=== PATIENT | female | born 1995 | race African-American/Black ===

== ENCOUNTER 2017-06-27 20:04 | Inpatient (IN) | payer MEDICAID, OTHER ==
[2017-06-27] VITALS (40 sets, daily range): BP systolic 108; BP diastolic 58; PULSE 87–131; RESP 18; TEMP 98.5
[~2017-06-27] VITALS: Ht 160 cm; Wt 74.0 kg
[~2017-06-27 20:04] MED LIST: Docusate Sod/Senna PO; IBUP600 PO; PRENCAP6 PO
[2017-06-27] MEDS: LACTATED RINGER'S 1000 ML INJ 1,000 ML IV SCH (20:53)
[2017-06-27] MEDS ORDERED: LACTATED RINGER'S 1000 ML INJ 1,000 ML IV ONE (21:00)
[2017-06-27] MEDS ORDERED: ONDANSETRON HCL 4 MG/2 ML VIAL IV PUSH ONE (21:00)
[2017-06-27] MEDS ORDERED: ACETAMINOPHEN 325 MG TAB PO ONE (21:00)
[2017-06-27 21:59] LABS: HEMATOCRIT 30.3 % (35.0-46.0); MEAN CELL VOLUME 72.7 FL (80.0-100.0); MEAN CORPUSCULAR HEMOGLOBIN 24.1 PG (27.0-34.0); MEAN CORPUSCULAR HGB CONC 33.2 % (32.0-36.0); PLATELET COUNT 260 TH/MM3 (150-450); RED BLOOD COUNT 4.17 MIL/MM3 (4.00-5.30); RED CELL DISTRIBUTION WIDTH 17.1 % (11.6-17.2); REVIEW FLAG FINAL; WHITE BLOOD COUNT 11.2 TH/MM3 (4.0-11.0)
[2017-06-27 22:04] LABS: BACTERIA, URINE RARE /hpf; BLOOD, URINE NEG (NEG); COMMENT (UR) CULT NOT INDICATED; CULTURE IF INDICATED CULT NOT INDICATED; GLUCOSE,URINE NEG (NEG); KETONE, URINE 10 mg/dL (NEG); MUCUS URINE FEW /lpf (OCC); NITRITE,URINE NEG (NEG); PH, URINE 6.5 (5.0-8.5); SQUAMOUS EPITHELIAL CELL URINE 3 /hpf (0-5); URINE COLOR YELLOW (YELLW/STRAW)
[2017-06-27 22:16] LABS: ANION GAP 9 MEQ/L (5-15); AST (GOT) 18 U/L (15-37); BICARBONATE 22.7 MEQ/L (21.0-32.0); BLOOD UREA NITROGEN 2 MG/DL (7-18); CHLORIDE 103 MEQ/L (98-107); GLOMERULAR FILTRATION RATE 128 ML/MIN (>89); POTASSIUM 4.2 MEQ/L (3.5-5.1); SODIUM (NA) 135 MEQ/L (136-145)
[2017-06-27 22:17] LABS: ALT (GPT) 16 U/L (10-53)
[2017-06-27 22:20] LABS: ALKALINE PHOSPHATASE 199 U/L (45-117); TOTAL BILIRUBIN ADULT 0.6 MG/DL (0.2-1.0)
[2017-06-27] MEDS ORDERED: TERBUTALINE INJ 1 MG/ML AMP ONE (22:41)
[2017-06-28] VITALS (51 sets, daily range): BP systolic 68–122; BP diastolic 43–74; PULSE 80–135; RESP 16–18; TEMP 98.1–99.1
--- NOTE | 2017-06-28 02:17 | PD ---
HPI Chief Complaint Not feeling well, contractions Date Seen: Jun 27, 2017 Time Seen: 22:00 Travel History International Travel<30 Days: No Contact w/Intl Traveler<30Days: No Known Affected Area: No History of Present Illness HPI 21-year-old 2 para 1001 with IUP at 32 weeks and 4 days. care complicated by anemia. The patient presents complaining of sore throat and runny nose with clear rhinorrhea for 3 days. She reports 2-2 days ago her temperature was 101 but today prior to presentation was 100.1 she reports that she has a headache which has not been relieved with Tylenol. She reports she has not ill contacts. There have been no aggravating or alleviating factors to her sore throat or runny nose. There are no attempted treatments except Tylenol. She she also reports that she's been feeling contractions. She reports that she is just generally not feeling well she also reports some nausea but has been able to tolerate by mouth intake. She had to take the bus to get here tonight. Weeks Gestation: 32 Para: 1 : 2 History Past Medical History Narrative Medical Anemia Obstetric History Obstetric History 001, full-term 1 Past Surgical History Surgical History: No Previous Surgery Family History Family History: Negative Social History Alcohol Use: No Tobacco Use: No Substance Abuse: No Allergies-Medications (Allergen,Severity, Reaction): Coded Allergies: Sulfa (Sulfonamide Antibiotics) (Unverified Allergy, Unknown, 03/26/17) Home Meds Active Scripts Ibuprofen (Motrin 600 Mg Tab) 600 Mg Tab, 600 MG PO Q6H for CRAMPS, #30 TAB NO REFILLS Refills Prov:GEOVANY TORRES CMaryN.M. 07/19/14 [Docusate Sod/Senna] 1 TAB TAB No Conflict Check, 2 TAB PO Q12H Y for CONSTIPATION, #30 TAB NO REFILLS Refills Prov:GEOVANY TORRES CMaryN.M. 07/19/14 Reported Medications Mv & Min W/Fe Fumarat ( 1) Cap, 1 CAP PO, CAP 07/17/14 Review of Systems Except as stated in HPI: all other systems reviewed are Neg General / Constitutional: Fever HENT: Headaches, Other (rhinorrhea) Respiratory: Cough Gastrointestinal: Nausea Physical Exam Vital Signs Date Time Temp Pulse Resp B/P (MAP) Pulse Ox O2 Delivery O2 Flow Rate FiO2 06/28/17 02:07 123 103/61 (75) 06/28/17 01:25 110 06/28/17 01:20 106 06/28/17 01:15 106 06/28/17 01:10 107 06/28/17 01:05 114 06/28/17 01:00 101 06/28/17 01:00 18 06/28/17 00:55 106 06/28/17 00:50 104 06/28/17 00:45 107 06/28/17 00:40 104 06/28/17 00:35 108 06/28/17 00:30 18 06/28/17 00:30 114 06/28/17 00:25 109 06/28/17 00:20 110 06/28/17 00:15 112 06/28/17 00:10 103 06/28/17 00:05 110 06/28/17 00:00 114 18 06/27/17 23:55 110 06/27/17 23:50 117 06/27/17 23:45 109 06/27/17 23:40 121 06/27/17 23:35 107 06/27/17 23:30 18 06/27/17 23:30 102 06/27/17 23:25 116 06/27/17 23:20 113 06/27/17 23:15 114 06/27/17 23:10 122 06/27/17 23:05 122 06/27/17 23:00 18 06/27/17 23:00 115 06/27/17 22:55 113 06/27/17 22:50 96 06/27/17 22:45 131 06/27/17 22:40 101 06/27/17 22:35 93 06/27/17 22:30 18 06/27/17 22:30 97 06/27/17 22:25 131 06/27/17 22:20 87 06/27/17 22:15 94 06/27/17 22:10 89 06/27/17 22:05 92 06/27/17 22:00 18 06/27/17 22:00 89 06/27/17 21:55 92 06/27/17 21:50 87 06/27/17 21:45 88 06/27/17 21:40 93 06/27/17 21:35 88 06/27/17 21:30 92 06/27/17 21:30 18 06/27/17 21:25 90 06/27/17 21:20 95 06/27/17 21:15 95 06/27/17 21:10 97 06/27/17 21:05 94 06/27/17 21:00 93 06/27/17 21:00 18 06/27/17 20:50 105 06/27/17 20:45 105 06/27/17 20:30 98.5 06/27/17 20:24 121 108/58 (75) Narrative GENERAL: Well-nourished, well-developed patient. SKIN: Warm and dry. HEAD: Normocephalic and atraumatic. EYES: No scleral icterus. No injection or drainage. ENT: No nasal drainage noted. Mucous membranes pink. Airway patent. NECK: Supple, trachea midline. No JVD. CARDIOVASCULAR: Regular rate and rhythm without murmurs, gallops, or rubs. RESPIRATORY: Breath sounds equal bilaterally. No accessory muscle use. BREASTS: Deferred ABDOMEN/GI: Abdomen soft, non-tender, bowel sounds present, no rebound, no guarding GENITOURINARY: External Genitalia: intact and normal in appearance. Normal BUS. Physiologic discharge. No cervical or vaginal masses. Normal rugae. The fibronectin was obtained. SVE closed/50/-3, posterior. The patient was having frequent contractions upon arrival which have decreased in intensity and frequency with IV fluids and terbutaline FHT's: heart tones in the 130s with moderate long-term variability, good accelerations, no decelerations noted. Overall reassuring testing EXTREMITIES: No cyanosis or edema. BACK: Nontender without obvious deformity. No CVA tenderness. NEUROLOGICAL: Awake and alert. Motor and sensory grossly within normal limits. Five out of 5 muscle strength in all muscle groups. Normal speech. Psychiatric: Grossly normal memory and affect Musculoskeletal: Grossly normal range of motion, gait, muscle strength Data Data Orders Orders Vital Signs (Adult) .ON ADMISSION (06/27/17 20:53) ^ Labor Status (06/27/17 20:53) Urinalysis - C+S If Indicated (06/27/17 20:53) ^ Non Stress Test (06/27/17 20:53) ^ Hydration (06/27/17 20:53) Cbc No Diff, Includes Plts (06/27/17 20:53) Comprehensive Metabolic Panel (06/27/17 20:53) Fibronectin (06/27/17 20:53) Lactated Ringer's 1000 Ml Inj (Lr 1000 M (06/27/17 20:53) Acetaminophen (Tylenol) (06/27/17 21:00) Ondansetron Inj (Zofran Inj) (06/27/17 21:00) Lactated Ringer's 1000 Ml Inj (Lr 1000 M (06/27/17 21:00) Influenzae A/B Antigen (06/27/17 20:55) Terbutaline Inj (Brethine Inj) (06/27/17 22:41) Ob (2e) Additional Admit Info (06/28/17 01:11) Labs Laboratory Tests Test 06/27/17 21:00 White Blood Count 11.2 Red Blood Count 4.17 Hemoglobin 10.1 Hematocrit 30.3 Mean Corpuscular Volume 72.7 Mean Corpuscular Hemoglobin 24.1 Mean Corpuscular Hemoglobin Concent 33.2 Red Cell Distribution Width 17.1 Platelet Count 260 Mean Platelet Volume 10.0 Urine Color YELLOW Urine Turbidity CLEAR Urine pH 6.5 Urine Specific [place] 1.010 Urine Protein TRACE Urine Glucose (UA) NEG Urine Ketones 10 Urine Occult Blood NEG Urine Nitrite NEG Urine Bilirubin NEG Urine Urobilinogen LESS THAN 2.0 Urine Leukocyte Esterase MOD Urine RBC 1 Urine WBC 1 Urine Squamous Epithelial Cells 3 Urine Bacteria RARE Urine Mucus FEW Microscopic Urinalysis Comment CULT NOT INDICATED Fibronectin NEGATIVE Blood Urea Nitrogen 2 Creatinine 0.69 Random Glucose 70 Total Protein 8.1 Albumin 2.7 Calcium Level 9.0 Alkaline Phosphatase 199 Aspartate Amino Transf (AST/SGOT) 18 Alanine Aminotransferase (ALT/SGPT) 16 Total Bilirubin 0.6 Sodium Level 135 Potassium Level 4.2 Chloride Level 103 Carbon Dioxide Level 22.7 Anion Gap 9 Estimat Glomerular Filtration Rate 128 Date/Time Source Procedure Growth Status 06/27/17 21:00 Nasal Washing Influenza Types A,B Antigen (ZACH) - Final NEGATIVE FOR FLU A AND B ANTIGEN.... Complete MDM Plan Assessment/plan: 1. IUP at 32.4 2. contractions: No evidence of labor with negative fibronectin and closed cervical exam. Contractions improved with terbutaline 1 and IV fluids; however patient is still kendra so will admit overnight to observe for labor. Strict labor precautions. 3. Probable upper respiratory infection: Patient with rhinorrhea with clear discharge, headache, mild sore throat. No evidence of influenza. We'll monitor 4. Febrile morbidity: Patient reports fever 1011 day ago, and 100.1 just prior to admission. Will observe overnight 5. well-being: Overall reassuring testing will continue monitoring. 6. UA negative Sonia Escalona MD Jun 28, 2017 02:17
[2017-06-28] MEDS ORDERED: SODIUM CHLORIDE 0.9% FLUSH 10 ML FLUSH IV FLUSH PRN (02:30)
[2017-06-28] MEDS ORDERED: ACETAMINOPHEN 325 MG TAB PO PRN (02:30)
[2017-06-28] MEDS ORDERED: ONDANSETRON ODT 4 MG TAB PO PRN (02:30)
[2017-06-28] MEDS ORDERED: ZOLPIDEM TARTRATE 5 MG TAB PO PRN (02:30)
[2017-06-28] MEDS: LACTATED RINGER'S 1000 ML INJ 1,000 ML IV SCH ×2 (06:00→12:53)
[2017-06-28] MEDS: SODIUM CHLORIDE 0.9% FLUSH 10 ML FLUSH IV FLUSH SCH ×2 (09:00→21:00)
[2017-06-28 13:37] LABS: AUTOMATED NEUTROPHIL # 3.6 TH/MM3 (1.8-7.7); BASOPHIL % 0.6 % (0.0-2.0); EOSINOPHIL # 0.2 TH/MM3 (0-0.4); EOSINOPHIL % 2.9 % (0.0-4.0); LYMPH % 25.4 % (9.0-44.0); LYMPHOCYTE # 1.6 TH/MM3 (1.0-4.8); MEAN CELL VOLUME 72.4 FL (80.0-100.0); MEAN CORPUSCULAR HEMOGLOBIN 23.4 PG (27.0-34.0); MEAN CORPUSCULAR HGB CONC 32.3 % (32.0-36.0); MONO % 12.4 % (0.0-8.0); NEUT % 58.7 % (16.0-70.0); PLATELET COUNT 208 TH/MM3 (150-450); RED BLOOD COUNT 2.92 MIL/MM3 (4.00-5.30); RED CELL DISTRIBUTION WIDTH 17.2 % (11.6-17.2); WHITE BLOOD COUNT 6.1 TH/MM3 (4.0-11.0)
[2017-06-28 13:43] LABS: HEMO FLAGS AUTO DIFF
[2017-06-28 13:50] LABS: HEMATOCRIT 21.1 % (35.0-46.0)
--- NOTE | 2017-06-28 14:11 | HHI.PR ---
Addendum to Inpatient Note Addendum Reason: Additional Documentation Additional Information As patient was preparing for discharge, she slipped and fell on her abdomen. Since then, she has been complaining of increased abdominal pain, approximately as bad as when she initially came in. She says that before she came in she was noticing some blood when she was wiping, but she otherwise denied any vaginal bleeding, and still denies any increase in vaginal bleeding. Bedside ultrasound did not show any obvious placental abruption. -Ordered BPP -Ordered coag profile, KB, type and screen because of decrease in hemoglobin from 10.1-6.8 and concern for placental abruption s/d/w Dr. Stapleton. Obed Wallace MD R2 Jun 28, 2017 14:11
[2017-06-28] MEDS ORDERED: LACTATED RINGER'S 1000 ML INJ 1,000 ML IV ONE (14:30)
[2017-06-28 14:44] LABS: SCAN/DIFF AUTO DIFF CONFIRMED
[2017-06-28 15:09] LABS: INTERNATIONAL NORMALIZED RATIO 0.9 RATIO; PROTHROMBIN TIME - PATIENT 9.8 SEC (9.8-11.6)
[2017-06-28] MEDS ORDERED: BETAMETHASONE SOD PHOS/ACETATE SUSP 30 MG/5 ML VIAL IM ONE (15:45)
[2017-06-29] VITALS (28 sets, daily range): BP systolic 86–118; BP diastolic 42–66; PULSE 97–127; RESP 18; TEMP 97.9–98
[2017-06-29] MEDS: LACTATED RINGER'S 1000 ML INJ 1,000 ML IV SCH ×2 (00:02→04:53)
[2017-06-29 05:57] LABS: AUTOMATED NEUTROPHIL # 6.3 TH/MM3 (1.8-7.7); BASOPHIL % 0.2 % (0.0-2.0); HEMATOCRIT 24.4 % (35.0-46.0); HEMO FLAGS DIFF FINAL; LYMPH % 15.5 % (9.0-44.0); LYMPHOCYTE # 1.2 TH/MM3 (1.0-4.8); MEAN CORPUSCULAR HGB CONC 33.4 % (32.0-36.0); MONO % 3.8 % (0.0-8.0); NEUT % 80.5 % (16.0-70.0); PLATELET COUNT 236 TH/MM3 (150-450); RED BLOOD COUNT 3.39 MIL/MM3 (4.00-5.30); RED CELL DISTRIBUTION WIDTH 16.9 % (11.6-17.2); WHITE BLOOD COUNT 7.8 TH/MM3 (4.0-11.0)
[2017-06-29] MEDS ORDERED: ONDANSETRON HCL 4 MG/2 ML VIAL ONE (07:53)
[2017-06-29] MEDS ORDERED: TERBUTALINE INJ 1 MG/ML AMP SQ ONE (08:00)
[2017-06-29] MEDS ORDERED: ONDANSETRON HCL 4 MG/2 ML VIAL IV PUSH PRN (08:00)
--- NOTE | 2017-06-29 08:52 | PD.OB.ANTE ---
Subjective Diagnosis: (1) contractions Diagnosis: Principal Interval History After she fell on her abdomen, she had a drop in her hemoglobin: 10.1, 6.8, now 8.1 this morning. Seemed to do well overnight with only a few decel's and sparce contractions, but she woke up with painful contractions, intense abdominal pain, and nausea and vomiting. Antepartum ROS: Reports: New complaints (as above), movement normal, Contractions, Denies: Loss of fluid, Vaginal bleeding Objective Vital Signs Vital Signs Date Time Temp Pulse Resp B/P (MAP) Pulse Ox O2 Delivery O2 Flow Rate FiO2 06/29/17 08:00 18 06/29/17 07:45 97 118/53 (74) 06/28/17 22:54 98.2 16 06/28/17 22:47 101 96/43 (60) 06/28/17 19:37 16 06/28/17 19:37 99.1 108 110/52 (71) 06/28/17 18:30 108 95/51 (66) 06/28/17 18:15 118 107/58 (74) 06/28/17 18:00 108 98/53 (68) 06/28/17 17:45 99 107/52 (70) 06/28/17 17:30 110 116/60 (78) 06/28/17 17:15 108 104/54 (71) 06/28/17 17:00 96 115/57 (76) 06/28/17 16:46 108 121/65 (83) 06/28/17 16:30 94 115/66 (82) 06/28/17 16:02 100 103/63 (76) 06/28/17 15:45 98 111/74 (86) 06/28/17 15:30 87 113/44 (67) 06/28/17 15:15 84 106/67 (80) 06/28/17 15:08 80 103/65 (78) 06/28/17 11:05 127 93/51 (65) 06/28/17 11:00 122 100/46 (64) 06/28/17 10:55 131 109/48 (68) 06/28/17 10:50 118 98/56 (70) 06/28/17 10:45 119 105/46 (65) 06/28/17 10:40 116 95/54 (68) 11/17/17 10:35 122 68/54 (59) 06/28/17 10:31 18 06/28/17 10:30 123 91/59 (70) 06/28/17 10:26 135 99/50 (66) 06/28/17 10:21 116 89/59 (69) 06/28/17 10:15 130 103/58 (73) 06/28/17 10:14 129 91/57 (68) Lab & Micro Results Test 06/28/17 12:30 06/28/17 14:29 06/29/17 05:40 White Blood Count 6.1 TH/MM3 7.8 TH/MM3 Red Blood Count 2.92 MIL/MM3 3.39 MIL/MM3 Hemoglobin 6.8 GM/DL 8.1 GM/DL Hematocrit 21.1 % 24.4 % Mean Corpuscular Volume 72.4 FL 72.0 FL Mean Corpuscular Hemoglobin 23.4 PG 24.0 PG Mean Corpuscular Hemoglobin Concent 32.3 % 33.4 % Red Cell Distribution Width 17.2 % 16.9 % Platelet Count 208 TH/MM3 236 TH/MM3 Mean Platelet Volume 9.4 FL 9.6 FL Neutrophils (%) (Auto) 58.7 % 80.5 % Lymphocytes (%) (Auto) 25.4 % 15.5 % Monocytes (%) (Auto) 12.4 % 3.8 % Eosinophils (%) (Auto) 2.9 % 0.0 % Basophils (%) (Auto) 0.6 % 0.2 % Neutrophils # (Auto) 3.6 TH/MM3 6.3 TH/MM3 Lymphocytes # (Auto) 1.6 TH/MM3 1.2 TH/MM3 Monocytes # (Auto) 0.8 TH/MM3 0.3 TH/MM3 Eosinophils # (Auto) 0.2 TH/MM3 0.0 TH/MM3 Basophils # (Auto) 0.0 TH/MM3 0.0 TH/MM3 CBC Comment AUTO DIFF DIFF FINAL Differential Comment AUTO DIFF CONFIRMED Hemoglobin F () 0.0 % Prothrombin Time 9.8 SEC Prothromb Time International Ratio 0.9 RATIO Activated Partial Thromboplast Time 25.0 SEC Date/Time Source Procedure Growth Status 06/27/17 21:00 Nasal Washing Influenza Types A,B Antigen (ZACH) - Final NEGATIVE FOR FLU A AND B ANTIGEN.... Complete Physical Exam GENERAL: Well-nourished, well-developed patient appears uncomfortable with contractions. CARDIOVASCULAR: Regular rate and rhythm without murmurs, gallops, or rubs. RESPIRATORY: Breath sounds equal bilaterally. No accessory muscle use. ABDOMEN/GI: Abdomen soft, non-tender. Fundus: c/w 30-33 week gestation GENITOURINARY: exam performed by Dr. Stapleton External Genitalia: intact and normal in appearance Cervix: posterior Dilatation: closed Uterine Contractions: q4-7m FHT's: Category: Cat I Baseline: 150 Reactive: reactive w/ accels Variability: moderate Decels: none EXTREMITIES: No cyanosis or edema, non-tender, without signs of DVT. Assessment and Plan Problem List: (1) contractions ICD Codes: O47.9 - False labor, unspecified Assessment and Plan Patient is a 21-year-old at 32 weeks and 6 days who presented with contractions, subsequently fell on her abdomen and had a drop in her hemoglobin, which seems to have resolved. However, now her contractions are worse this morning and she has nausea and vomiting. 1. contractions -Fentanyl 50 g IV -Terbutaline SQ -IV magnesium -Patient received one betamethasone shot yesterday (06/28). We plan to give another today (06/29) -Ampicillin 2g q6h -continue to monitor vitals and FHT and toco 2. nausea and vomiting -Zofran IV PRN d/w Dr. Pieter Wallace,Obed Liang MD R2 Jun 29, 2017 08:52
[2017-06-29] MEDS: SODIUM CHLORIDE 0.9% FLUSH 10 ML FLUSH IV FLUSH SCH ×2 (09:00→21:00)
[2017-06-29] MEDS ORDERED: MAGNESIUM SULFATE 4 GM PREMIX 100 ML IV ONE (09:15)
[2017-06-29] MEDS: BETAMETHASONE SOD PHOS/ACETATE SUSP 30 MG/5 ML VIAL IM SCH (09:15)
[2017-06-29] MEDS: MAGNESIUM SULFATE 40 GM PREMIX 1,000 ML IV SCH (09:57)
[2017-06-29] MEDS ORDERED: CITRIC ACID-SODIUM CITRATE LIQ 30 ML UDC ONE (10:25)
[2017-06-29] MEDS ORDERED: PSEUDOEPHEDRINE HCL 30 MG TAB PO PRN (10:45)
[2017-06-29] MEDS ORDERED: FAMOTIDINE 20 MG TAB PO ONE (11:00)
[2017-06-29] MEDS: AMPICILLIN INJ 2,000 MG in SODIUM CHLORIDE 0.9% INJ 100 ML IV SCH ×2 (12:00→17:01)
[2017-06-29] MEDS ORDERED: BETAMETHASONE SOD PHOS/ACETATE SUSP 30 MG/5 ML VIAL IM ONE (16:55)
[2017-06-29 17:42] LABS: HEMATOCRIT 23.1 % (35.0-46.0); MEAN CELL VOLUME 72.5 FL (80.0-100.0); MEAN CORPUSCULAR HEMOGLOBIN 23.2 PG (27.0-34.0); PLATELET COUNT 259 TH/MM3 (150-450); RED BLOOD COUNT 3.18 MIL/MM3 (4.00-5.30); RED CELL DISTRIBUTION WIDTH 16.7 % (11.6-17.2); REVIEW FLAG FINAL; WHITE BLOOD COUNT 11.3 TH/MM3 (4.0-11.0)
--- NOTE | 2017-06-29 19:04 | HHI.PR ---
Addendum to Inpatient Note Addendum Reason: Additional Documentation Additional Information Consult Mary Riley MR# [id number] Maternal Hx: 21 y/o, at 32.5 weeks gestation with diagnosis of Labor, Febrile URI Mother admitted to [facility] on 06/28/17, secondary to uterine contractions and viral illness. Maternal Labs: Have been sent and are pending Maternal Medications: PNV, Antibiotics, Magnesium Sulfate Betamethasone 06/28/17 and 06/29/17 Social: Resides locally Family Hx: Mother reports no genetic or inherited conditions. Reports other child is well, breast fed x 2.5 years Substance Abuse: Denies Discussion: Nurse Practitioner met with mother regarding threatened delivery at 32.5 weeks gestation secondary to Labor. This consultation included generalized care of the baby in the NICU, common problems, complications and survival and/or disability potential if delivered at this time. Mother was provided with informational sheets from [facility] regarding the development of the baby currently, an introduction to the NICU, and what to expect at the delivery. Mother agreed that she would review the information as soon as possible. We reviewed the expectations with delivery of an infant under these circumstances including delivery room atmosphere, resuscitation and stabilization. Also included in this review is the admission process to the NICU, including possible procedures such as intubation and placement of umbilical catheter(s). Additionally, there was a discussion of the disease processes that may affect an infant of this gestation, including but not limited to respiratory distress, infection and nutritional concerns. Discussion detailed various forms of respiratory support for immature lungs including use of surfactant and placement of umbilical catheters and/or PICC lines. Discussion focused on CPAP and/or ventilator support as needed for an of this gestation. There was a review of nutritional support challenges including IV and gavage feeding. There was discussion regarding of possible feeding intolerances. Breast feeding and early breast milk pumping was strongly encouraged, and mother plans to do so. Explained that is at risk for hyperbilirubinemia and may require treatment with phototherapy. Explained possibility of apnea/ bradycardia. Support systems in [facility] at [facility] were reviewed and included , Case Management and Ministry which the family may utilize. Expected discharge would likely occur closer to the due date if the infant has an uncomplicated hospitalization. Greater than 50% of the consultation time was spent with the patient. Consult time was 50 minutes. Danitza EDWARDSP Date 06/29/2017 DANITZA GARRISON Jun 29, 2017 19:04
--- NOTE | 2017-06-29 19:31 | PD.OB.ANTE ---
Subjective Diagnosis: (1) contractions Interval History Patient reports diminished abdominal pain. No bleeding. Decreased contractions. Antepartum ROS: Reports: movement normal, Denies: Loss of fluid, Vaginal bleeding Objective Vital Signs Vital Signs Date Time Temp Pulse Resp B/P (MAP) Pulse Ox O2 Delivery O2 Flow Rate FiO2 06/29/17 18:00 105 86/42 (57) 06/29/17 17:16 18 06/29/17 17:15 98.0 06/29/17 17:00 18 06/29/17 17:00 120 107/57 (74) 06/29/17 16:06 108 100/46 (64) 06/29/17 16:00 124 18 87/52 (64) 06/29/17 15:00 119 18 105/54 (71) 06/29/17 14:00 119 107/52 (70) 06/29/17 13:57 18 06/29/17 13:00 18 06/29/17 13:00 118 116/56 (76) 06/29/17 12:00 120 100/44 (62) 06/29/17 11:50 18 06/29/17 11:00 125 101/63 (76) 06/29/17 10:30 121 06/29/17 10:15 123 06/29/17 10:10 122 96/45 (62) 06/29/17 10:10 127 06/29/17 10:05 122 110/48 (68) 06/29/17 10:05 118 06/29/17 10:04 18 06/29/17 10:00 123 110/54 (72) 06/29/17 10:00 18 06/29/17 09:55 117 113/64 (80) 06/29/17 09:52 118 110/66 (81) 06/29/17 08:00 18 06/29/17 08:00 98.0 06/29/17 07:45 97 118/53 (74) 06/28/17 22:54 98.2 16 06/28/17 22:47 101 96/43 (60) 06/28/17 19:37 16 06/28/17 19:37 99.1 108 110/52 (71) Lab & Micro Results Test 06/29/17 05:40 06/29/17 16:05 White Blood Count 7.8 TH/MM3 11.3 TH/MM3 Red Blood Count 3.39 MIL/MM3 3.18 MIL/MM3 Hemoglobin 8.1 GM/DL 7.4 GM/DL Hematocrit 24.4 % 23.1 % Mean Corpuscular Volume 72.0 FL 72.5 FL Mean Corpuscular Hemoglobin 24.0 PG 23.2 PG Mean Corpuscular Hemoglobin Concent 33.4 % 32.0 % Red Cell Distribution Width 16.9 % 16.7 % Platelet Count 236 TH/MM3 259 TH/MM3 Mean Platelet Volume 9.6 FL 9.6 FL Neutrophils (%) (Auto) 80.5 % Lymphocytes (%) (Auto) 15.5 % Monocytes (%) (Auto) 3.8 % Eosinophils (%) (Auto) 0.0 % Basophils (%) (Auto) 0.2 % Neutrophils # (Auto) 6.3 TH/MM3 Lymphocytes # (Auto) 1.2 TH/MM3 Monocytes # (Auto) 0.3 TH/MM3 Eosinophils # (Auto) 0.0 TH/MM3 Basophils # (Auto) 0.0 TH/MM3 CBC Comment DIFF FINAL Differential Comment Date/Time Source Procedure Growth Status 06/27/17 21:00 Nasal Washing Influenza Types A,B Antigen (ZACH) - Final NEGATIVE FOR FLU A AND B ANTIGEN.... Complete Physical Exam GENERAL: Well-nourished, well-developed patient. ABDOMEN/GI: Abdomen soft, non-tender. Fundus: [-] GENITOURINARY: External Genitalia: intact and normal in appearance Cervix: [-] Dilatation: [-] Effacement: [-] Station: [-] Presentation: [-] Membranes: [-] Uterine Contractions: [Irregular-] FHT's: Category: [1-] Baseline: [-] Reactive: [-] Variability: [-] Decels: [-] EXTREMITIES: No cyanosis or edema, non-tender, without signs of DVT. Assessment and Plan Problem List: (1) contractions ICD Codes: O47.9 - False labor, unspecified Assessment and Plan Patient is a 21-year-old at 32 weeks and 6 days who presented with contractions, subsequently fell on her abdomen and had a drop in her hemoglobin, which is stable. However, her contractions were worse this morning and she has nausea and vomiting. 1. contractions -IV magnesium -Patient received one betamethasone shot yesterday (06/28). We plan to give another today (06/29) -Ampicillin 2g q6h -continue to monitor vitals and FHT and toco 2. nausea and vomiting -Zofran IV PRN 3. Serial hemoglobin Gregorio Barnett MD Jun 29, 2017 19:31
[2017-06-29] MEDS: DOCUSATE SODIUM 100 MG CAP PO SCH (21:00)
[2017-06-30] VITALS (62 sets, daily range): BP systolic 94–118; BP diastolic 28–65; PULSE 78–116; RESP 18–20; TEMP 97.7–98.9; O2SAT 99–100
[2017-06-30] MEDS: LACTATED RINGER'S 1000 ML INJ 1,000 ML IV SCH ×2 (04:53→12:53)
[2017-06-30] MEDS: MAGNESIUM SULFATE 40 GM PREMIX 1,000 ML IV SCH (05:07)
[2017-06-30] MEDS: AMPICILLIN INJ 2,000 MG in SODIUM CHLORIDE 0.9% INJ 100 ML IV SCH ×4 (06:00→12:00)
[2017-06-30 07:00] LABS: MEAN CELL VOLUME 72.5 FL (80.0-100.0); MEAN CORPUSCULAR HGB CONC 33.2 % (32.0-36.0); PLATELET COUNT 227 TH/MM3 (150-450); RED BLOOD COUNT 2.88 MIL/MM3 (4.00-5.30); RED CELL DISTRIBUTION WIDTH 17.3 % (11.6-17.2); WHITE BLOOD COUNT 9.2 TH/MM3 (4.0-11.0)
[2017-06-30 07:04] LABS: REVIEW FLAG FINAL
[2017-06-30 07:07] LABS: HEMATOCRIT 20.9 % (35.0-46.0)
[2017-06-30] MEDS: SODIUM CHLORIDE 0.9% FLUSH 10 ML FLUSH IV FLUSH SCH (09:00)
[2017-06-30] MEDS: DOCUSATE SODIUM 100 MG CAP PO SCH (09:00)
[2017-06-30] MEDS: BETAMETHASONE SOD PHOS/ACETATE SUSP 30 MG/5 ML VIAL IM SCH (09:15)
--- NOTE | 2017-06-30 10:07 | PD.OB.ANTE ---
Subjective Diagnosis: (1) contractions Interval History The patient reports continued low-grade abdominal pain that she describes as being in the area above her umbilicus. She states it feels like a crampy tenderness. No bleeding, leakage of fluid or increasing contraction. Her upper respiratory symptoms are improving. Antepartum ROS: Reports: movement normal, Contractions, Denies: New complaints, Loss of fluid, Vaginal bleeding Objective Vital Signs Vital Signs Date Time Temp Pulse Resp B/P (MAP) Pulse Ox O2 Delivery O2 Flow Rate FiO2 06/30/17 09:00 18 06/30/17 08:20 90 06/30/17 08:15 86 06/30/17 08:10 86 06/30/17 08:05 84 06/30/17 08:00 101/58 (72) 06/30/17 08:00 86 06/30/17 08:00 100 06/30/17 07:55 84 100 06/30/17 07:50 92 100 06/30/17 07:45 88 100 06/30/17 07:40 101 100 06/30/17 07:39 18 06/30/17 07:38 98.2 06/30/17 07:35 100 06/30/17 07:32 93 113/55 (74) 06/30/17 05:58 97.7 18 06/30/17 05:55 91 94/43 (60) 06/30/17 02:46 90 103/55 (71) 06/29/17 23:00 99 101/47 (65) 06/29/17 22:00 101 109/62 (78) 06/29/17 21:00 97.9 121 18 99/55 (70) 06/29/17 20:41 116 102/55 (71) 06/29/17 19:02 98 112/57 (75) 06/29/17 18:00 105 86/42 (57) 06/29/17 17:16 18 06/29/17 17:15 98.0 06/29/17 17:00 18 06/29/17 17:00 120 107/57 (74) 06/29/17 16:06 108 100/46 (64) 06/29/17 16:00 124 18 87/52 (64) 06/29/17 15:00 119 18 105/54 (71) 06/29/17 14:00 119 107/52 (70) 06/29/17 13:57 18 06/29/17 13:00 18 06/29/17 13:00 118 116/56 (76) 06/29/17 12:00 120 100/44 (62) 06/29/17 11:50 18 06/29/17 11:00 125 101/63 (76) 06/29/17 10:30 121 06/29/17 10:15 123 06/29/17 10:10 122 96/45 (62) 06/29/17 10:10 127 06/29/17 10:05 122 110/48 (68) 06/29/17 10:05 118 06/29/17 10:04 18 06/29/17 10:00 123 110/54 (72) 06/29/17 10:00 18 06/29/17 09:55 117 113/64 (80) 06/29/17 09:52 118 110/66 (81) Lab & Micro Results Test 06/29/17 16:05 06/30/17 05:42 White Blood Count 11.3 TH/MM3 9.2 TH/MM3 Red Blood Count 3.18 MIL/MM3 2.88 MIL/MM3 Hemoglobin 7.4 GM/DL 6.9 GM/DL Hematocrit 23.1 % 20.9 % Mean Corpuscular Volume 72.5 FL 72.5 FL Mean Corpuscular Hemoglobin 23.2 PG 24.0 PG Mean Corpuscular Hemoglobin Concent 32.0 % 33.2 % Red Cell Distribution Width 16.7 % 17.3 % Platelet Count 259 TH/MM3 227 TH/MM3 Mean Platelet Volume 9.6 FL 9.8 FL HIV (1&2) Antibody NEGATIVE Date/Time Source Procedure Growth Status 06/27/17 21:00 Nasal Washing Influenza Types A,B Antigen (ZACH) - Final NEGATIVE FOR FLU A AND B ANTIGEN.... Complete Physical Exam GENERAL: Well-nourished, well-developed patient. CARDIOVASCULAR: Regular rate and rhythm without murmurs, gallops, or rubs. RESPIRATORY: Breath sounds equal bilaterally. No accessory muscle use. ABDOMEN/GI: Abdomen soft, non-tender. Fundus: [Nontender, soft-] GENITOURINARY: External Genitalia: intact and normal in appearance Cervix: [-] Dilatation: [-Closed] Effacement: [-25%] Station: [--2] Presentation: [-Vertex] Membranes: [-] Uterine Contractions: [Irregular mild-] FHT's: Category: [2-] Baseline: [-] Reactive: [-] Variability: [Moderate-] Decels: [Intermittent late-] EXTREMITIES: No cyanosis or edema, non-tender, without signs of DVT. Assessment and Plan Problem List: (1) contractions ICD Codes: O47.9 - False labor, unspecified Assessment and Plan Patient is a 21-year-old at 32 weeks and 6 days who presented with contractions, subsequently fell on her abdomen and had a drop in her hemoglobin, which is stable. However, her contractions were worse this morning and she has nausea and vomiting. 1. contractions -Patient received betamethasone -Ampicillin 2g q6h -continue to monitor vitals and FHT and toco 2. nausea and vomiting -Zofran IV PRN 3. Serial hemoglobin Gregorio Barnett MD Jun 30, 2017 10:07
[2017-06-30 17:17] LABS: REVIEW FLAG FINAL
[2017-06-30 17:18] LABS: HEMATOCRIT 20.3 % (35.0-46.0)
--- NOTE | 2017-06-30 17:31 | HHI.PR ---
ELECTRON MICROSCOPIST Note Note Laboratory Tests Test 06/29/17 05:40 06/29/17 16:05 06/30/17 05:42 06/30/17 16:35 White Blood Count 7.8 TH/MM3 11.3 TH/MM3 9.2 TH/MM3 Red Blood Count 3.39 MIL/MM3 3.18 MIL/MM3 2.88 MIL/MM3 Hemoglobin 8.1 GM/DL 7.4 GM/DL 6.9 GM/DL 6.6 GM/DL Hematocrit 24.4 % 23.1 % 20.9 % 20.3 % Mean Corpuscular Volume 72.0 FL 72.5 FL 72.5 FL Mean Corpuscular Hemoglobin 24.0 PG 23.2 PG 24.0 PG Mean Corpuscular Hemoglobin Concent 33.4 % 32.0 % 33.2 % Red Cell Distribution Width 16.9 % 16.7 % 17.3 % Platelet Count 236 TH/MM3 259 TH/MM3 227 TH/MM3 Mean Platelet Volume 9.6 FL 9.6 FL 9.8 FL Neutrophils (%) (Auto) 80.5 % Lymphocytes (%) (Auto) 15.5 % Monocytes (%) (Auto) 3.8 % Eosinophils (%) (Auto) 0.0 % Basophils (%) (Auto) 0.2 % Neutrophils # (Auto) 6.3 TH/MM3 Lymphocytes # (Auto) 1.2 TH/MM3 Monocytes # (Auto) 0.3 TH/MM3 Eosinophils # (Auto) 0.0 TH/MM3 Basophils # (Auto) 0.0 TH/MM3 CBC Comment DIFF FINAL Differential Comment HIV (1&2) Antibody NEGATIVE Patient seen and examined. No signs of bleeding and patient states that she has been severely anemic this . No labs are available at this time. She continues to complain of weakness, fatigue, and occasional dizziness. We discussed the need for blood transfusion. IV iron is an alternative but would not be feasible quickly. Margaret Grimes MD Jun 30, 2017 17:31
[2017-06-30] MEDS ORDERED: SODIUM CHLOR 0.9% 250 ML INJ 250 ML IV ONE (17:45)
[2017-06-30] MEDS ORDERED: diphenhydrAMINE HCL 25 MG CAP PO PRN (17:45)
[2017-06-30] MEDS ORDERED: ACETAMINOPHEN 325 MG TAB PO PRN (17:45)
[2017-06-30] MEDS ORDERED: diphenhydrAMINE HCL 50 MG CAP PO PRN (22:45)
[2017-06-30] MEDS ORDERED: PSEUDOEPHEDRINE HCL 30 MG TAB PO PRN (23:15)
[2017-06-30] MEDS ORDERED: PANTOPRAZOLE SOD 40 MG DELAYED RELEASE TAB PO SCH (23:15)
--- NOTE | 2017-06-30 23:15 | HHI.PR ---
PHARMACY TECH CUSTOMER SERVICE Note Note Called to see patient due to heartburn. Patient states that she's having an almost obstructive feeling in her lower esophagus that is consistent with her typical heartburn pattern. Although she continues to be congested lung sounds are normal and there clear bilaterally with no wheezes no round rales. Patient' s pulses 100 and she is presently on her second unit of packed red blood cells due to symptomatically anemia. She is moving air well with an oxygen saturation of 100% and a normal blood pressure I will go ahead and order Protonix to be given now and then daily for her continued heartburn. I've ordered Benadryl for tonight for her congestion and Sudafed for tomorrow during the day. Margaret Grimes MD Jun 30, 2017 23:15
[2017-07-01 00:25] VITALS: BP 100/59; PULSE 88
[2017-07-01 00:30] VITALS: BP 100/59; PULSE 88; RESP 18; TEMP 98.7
[2017-07-01 00:34] VITALS: RESP 18; TEMP 98.7
[2017-07-01 06:00] LABS: HEMATOCRIT 25.4 % (35.0-46.0); REVIEW FLAG FINAL
[2017-07-01 07:19] VITALS: RESP 16; TEMP 98.2
[2017-07-01 07:31] VITALS: RESP 16
[2017-07-01] MEDS: LACTATED RINGER'S 1000 ML INJ 1,000 ML IV SCH ×2 (07:32→07:33)
[2017-07-01] MEDS: SODIUM CHLORIDE 0.9% FLUSH 10 ML FLUSH IV FLUSH SCH ×2 (07:33→09:03)
--- NOTE | 2017-07-01 08:41 | PD.OB.ANTE ---
Subjective Diagnosis: (1) contractions Diagnosis: Principal Interval History Patient continues to complain of contractions. She has received IV antibiotics, IV magnesium, betamethasone, IV fluids, all of which have been completed and discontinued. Antepartum ROS: Reports: movement normal, Denies: New complaints, Loss of fluid, Vaginal bleeding, Contractions Objective Vital Signs Vital Signs Date Time Temp Pulse Resp B/P (MAP) Pulse Ox O2 Delivery O2 Flow Rate FiO2 07/01/17 07:31 16 07/01/17 07:30 16 07/01/17 07:19 98.2 16 07/01/17 00:34 98.7 18 07/01/17 00:30 98.7 88 18 100/59 07/01/17 00:25 88 100/59 (73) 06/30/17 23:25 103 106/58 (74) 06/30/17 23:20 111 109/52 (71) 06/30/17 23:15 99 100/43 (62) 06/30/17 23:05 102 105/49 (67) 06/30/17 23:00 115 118/40 (66) 06/30/17 22:55 95 109/41 (63) 06/30/17 22:50 105 114/54 (74) 06/30/17 22:45 116 111/48 (69) 06/30/17 22:40 101 103/41 (61) 06/30/17 22:35 107 105/47 (66) 06/30/17 22:31 98.6 06/30/17 22:31 98.6 112 18 103/42 06/30/17 22:30 112 103/42 (62) 06/30/17 22:25 99 103/31 (55) 06/30/17 22:20 109 95/42 (59) 06/30/17 22:17 98.5 18 06/30/17 22:16 107 105/35 (58) 06/30/17 22:16 98.5 107 18 105/35 06/30/17 22:15 108 98/28 (51) 06/30/17 22:01 98.5 109 20 97/39 06/30/17 21:58 98.5 06/30/17 21:58 18 06/30/17 19:44 98.9 18 06/30/17 19:44 98.9 83 18 107/54 06/30/17 19:40 85 113/62 (79) 06/30/17 19:35 80 109/55 (73) 06/30/17 19:30 90 113/62 (79) 06/30/17 19:27 98.8 06/30/17 19:27 98.8 95 18 104/65 06/30/17 19:25 95 104/65 (78) 06/30/17 19:20 82 115/53 (73) 06/30/17 19:15 86 110/52 (71) 06/30/17 19:10 78 112/49 (70) 06/30/17 19:05 88 105/59 (74) 06/30/17 19:00 86 110/55 (73) 06/30/17 18:55 87 97/42 (60) 06/30/17 18:53 98.0 91 18 100/40 06/30/17 18:51 91 100/40 (60) 06/30/17 15:15 18 06/30/17 11:00 18 06/30/17 10:10 107 06/30/17 10:01 103 105/58 (74) 06/30/17 10:00 107 06/30/17 09:00 18 06/30/17 08:55 94 100 06/30/17 08:50 96 100 06/30/17 08:45 106 99 Intake & Output 07/01/17 07/01/17 07:00 19:00 Intake Total 820 ml Balance 820 ml Packed Cells 800 ml Blood Product IV Normal Saline Flush 20 ml Lab & Micro Results Test 06/30/17 16:35 07/01/17 05:09 Hemoglobin 6.6 GM/DL 8.6 GM/DL Hematocrit 20.3 % 25.4 % Date/Time Source Procedure Growth Status 06/27/17 21:00 Nasal Washing Influenza Types A,B Antigen (ZACH) - Final NEGATIVE FOR FLU A AND B ANTIGEN.... Complete Physical Exam GENERAL: Well-nourished, well-developed patient. CARDIOVASCULAR: Regular rate and rhythm without murmurs, gallops, or rubs. RESPIRATORY: Breath sounds equal bilaterally. No accessory muscle use. ABDOMEN/GI: Abdomen soft, non-tender. Fundus: c/w 33 week gestation GENITOURINARY: Latimer: small irregular contractions as often as every minute FHT's: Category: Cat I Baseline: 145 Reactive: reactive Variability: moderate Decels: none EXTREMITIES: No cyanosis or edema, non-tender, without signs of DVT. Assessment and Plan Problem List: (1) contractions ICD Codes: O47.9 - False labor, unspecified Assessment and Plan Patient is a 21-year-old at 33 weeks and 1 days who presented with contractions, subsequently fell on her abdomen and had a drop in her hemoglobin, which is stable. However, she still c/o contractions, which are minimal on the monitor. 1. contractions -d/c IVF, IV abx, IV magnesium -Patient received betamethasone x2 -Ampicillin 2g q6h -continue to monitor vitals and FHT and toco until discharge, likely today -discharge home with bedrest 2. nausea and vomiting -Zofran IV PRN 3. Serial hemoglobin stable -ferrous sulfate po bid d/w Dr Sydney Wallace,Obed Liang MD R2 Jul 01, 2017 08:41
[2017-07-01] MEDS: DOCUSATE SODIUM 100 MG CAP PO SCH (09:02)
[2017-07-01] MEDS ORDERED: FERR325T18 PO (12:46)
--- NOTE | 2017-07-01 12:47 | HHI.DCPOC ---
Discharge Care Plan Diagnosis: (1) contractions Report Symptoms to Your Doctor -Temperature above 100.5 degrees -Redness, of incision or excessive or foul smelling drainage -Unusual pain or calf pain -Increased vaginal bleeding -Painful or difficulty urinating -Feelings of extreme sadness or anxiety after 2 weeks Goals to Promote Your Health * To prevent worsening of your condition and complications, please follow up with your OBGYN provider within the next week. * To maintain your health at the optimal level, please follow your doctor's recommendations. Directions to Meet Your Goals Take your medications as prescribed Follow your dietary instruction Follow activity as directed Ensure plenty of rest for recovery Drink fluids for hydration Keep your appointments as scheduled Take your immunizations and boosters as scheduled If your symptoms worsen call your PCP, if no PCP go to Urgent Care Center or Emergency Room Smoking is Dangerous to Your Health. Avoid second hand smoke Call the 24-hour crisis hotline for domestic abuse at Obed Wallace MD R2 Jul 01, 2017 12:47
[2017-07-01 13:20] VITALS: BP 94/43; PULSE 89
[2017-07-03 13:17] LABS: PHENCYCLIDINE URINE NEG (NEG)
[2017-07-03 13:18] LABS: BATH SALTS (MDPV) UR NEG (NEG); ECSTASY (MDMA) UR NEG (NEG); HEROIN (6-ACETYLMORPHINE) UR NEG (NEG); K2 SPICE UR NEG (NEG); OBGABAPENTIN UR NEG (NEG); OBHYDROMORPHONE U NEG (NEG); OBMETHADONE UR NEG (NEG)
== END 2017-07-01 15:40 | disposition home or self-care (01) | DRG 778 ==
LOC: HOBED 20:04 → H2EA 06-28 01:12 → OBSVTOIN 06-28 16:34
PROVIDERS: ADMIT Obstetrics & Gynecology; ATTEND Obstetrics & Gynecology
PROC: 30233N1 Transfusion of Nonautologous Red Blood Cells into Peripheral Vein, Percutaneous Approach (ICD-10-PCS; principal; 2017-06-30)
DX: O60.03 Preterm labor without delivery, third trimester (principal); D64.9 Anemia, unspecified; J06.9 Acute upper respiratory infection, unspecified; O99.513 Diseases of the respiratory system complicating pregnancy, third trimester; O99.013 Anemia complicating pregnancy, third trimester; W01.0XXA Fall on same level from slipping, tripping and stumbling without subsequent striking against object, initial encounter; R12 Heartburn; R11.2 Nausea with vomiting, unspecified; Z3A.32 32 weeks gestation of pregnancy
CPT/HCPCS: 36430; 59025; 76816; 76819; 80053; 80074; 80307; 81001; 82731; 83030; 85014; 85018; 85025; 85027; 85610; 85730; 86592; 86703; 86850; 86900; 86901; 86920; 87804; 96361; 96372; 96374; G0481; J0290; J0702; J2405; J3010; J3105; J3475; J7050; J7120; P9016; Q0163

== ENCOUNTER 2017-07-08 18:34 | Observation (INO) | payer MEDICAID ==
[~2017-07-08] VITALS: Ht 160 cm; Wt 74.0 kg
[2017-07-08] VITALS (17 sets, daily range): BP systolic 94–121; BP diastolic 43–71; PULSE 112–143; RESP 16–18; TEMP 98.4
[~2017-07-08 18:34] MED LIST changes: +FERR325T18 PO
[2017-07-08] MEDS ORDERED: TERBUTALINE INJ 1 MG/ML AMP ONE (20:04)
[2017-07-08] MEDS ORDERED: TERBUTALINE INJ 1 MG/ML AMP SQ ONE (20:15)
--- NOTE | 2017-07-08 20:27 | PD ---
HPI Chief Complaint Contractions some nausea and vomiting a day of upper respiratory symptoms sinus symptoms that she's had for several weeks and headache on the patient was here 4 days starting June 28 for threatened labor and anemia which she received 2 units of blood Date Seen: Jul 08, 2017 Time Seen: 20:10 Travel History International Travel<30 Days: No Contact w/Intl Traveler<30Days: No Known Affected Area: No History of Present Illness HPI Patient is [age] black female at 34 weeks who is unregistered to our hospital but is keep coming back here she complains of contractions nausea and vomiting upper respiratory symptoms and headache, she is kendra every 4-5 minutes heart rate tracing is reactive. The patient was here over a week ago as stated 4 days for threatened labor was given IV magnesium sulfate was noted be anemic and dropped her hemoglobin after hydration and was symptomatic and was given 2 units of blood which she improved and was be able to be discharged she did receive steroids IM Weeks Gestation: 34 Para: 1 : 2 History Obstetric History Obstetric History Patient's previous vaginal delivery in the past. This she's had multiple problems she's been going to Dr. Vargas in [facility] but she keeps coming back to [place] over and over. She was seen and admitted here 4 days will over a week ago for threatened labor and was anemic and given the 2 units of blood at that time also had IM steroids Social History Alcohol Use: No Tobacco Use: No Substance Abuse: No Allergies-Medications (Allergen,Severity, Reaction): Coded Allergies: Sulfa (Sulfonamide Antibiotics) (Unverified Allergy, Unknown, 03/26/17) Home Meds Active Scripts Azithromycin (Zithromax Z-Sky) 250 Mg Dspk, 250 MG PO DIRECTED for Infection , #1 DSPK 0 Refills 500 MG (2 tabs) day 1, then 1 tab days 2-5. Prov:Caesar Stapleton II, MD 07/08/17 Ferrous Sulfate (Ferrous Sulfate) 325 Mg (65 Mg Iron) Tablet, 325 MG PO BIDPC for Nutritional Supplement, #60 TAB 11 Refills Prov:Obed Wallace MD R2 07/01/17 Ibuprofen (Motrin 600 Mg Tab) 600 Mg Tab, 600 MG PO Q6H for CRAMPS, #30 TAB NO REFILLS Refills Prov:GEOVANY TORRES C.N.M. 07/19/14 [Docusate Sod/Senna] 1 TAB TAB No Conflict Check, 2 TAB PO Q12H Y for CONSTIPATION, #30 TAB NO REFILLS Refills Prov:GEOVANY TORRES Omayra BordenN.M. 07/19/14 Reported Medications Mv & Min W/Fe Fumarat ( 1) 30 Mg-975 Mcg-200 Mg Cap, 1 CAP PO, CAP 07/17/14 Review of Systems General / Constitutional: No: Fever, Weight Gain, Chills, Other Eyes: No: Diploplia, Blurred Vision, Visual changes, Pain, Photophobia HENT: Headaches, No: Vertigo, Lightheadedness Cardiovascular: No: Irregular Rhythm, Chest Pain or Discomfort, Palpitations, Tachycardia, Syncope, Varicosities, Edema, Cyanosis Respiratory: No: Cough, Short of Breath, Other Gastrointestinal: Nausea, Vomiting, No: Diarrhea Genitourinary: No: Decreased Urinary Output, Oliguria Musculoskeletal: No: Limited ROM, Weakness, Cramping, Edema, Pain Skin: No Rash, No Itching, No Dryness, No Lumps, No Change in Pigmentation, No Change in Nails, No Alopecia, No Lesions Neurologic: No: Weakness, Dizziness, Syncope, Focal Abnormalities, Coordination Problem, Headache, Slurred Speech, Seizures Psychiatric: No: Depression, Suicidal Ideations, Homicidal Ideation Endocrine: No: Heat Intolerance, Cold Intolerance, Polydipsia, Polyuria, Other Physical Exam Narrative GENERAL: Well-nourished, well-developed patient. SKIN: Warm and dry. HEAD: Normocephalic and atraumatic. EYES: No scleral icterus. No injection or drainage. ENT: No nasal drainage noted. Mucous membranes pink. Airway patent. NECK: Supple, trachea midline. No JVD. CARDIOVASCULAR: Regular rate and rhythm without murmurs, gallops, or rubs. RESPIRATORY: Breath sounds equal bilaterally. No accessory muscle use. BREASTS: Bilateral exam showed no masses , no retractions, no nipple discharge. ABDOMEN/GI: Abdomen soft, non-tender, bowel sounds present, no rebound, no guarding Gravid to [-34] weeks size Fundal Height: [34-] GENITOURINARY: External Genitalia: intact and normal in appearance BUS glands: [-] Cervix: [-post] Dilatation: [-0] Effacement: [0-] Station: [-3] Membranes: [intact ] Uterine Contractions: [-q 5 min] FHT's: Category: [-1] Baseline: [133-] Reactive: [yes-] Variability: [mod-] Decels: [-0] EXTREMITIES: No cyanosis or edema. BACK: Nontender without obvious deformity. No CVA tenderness. NEUROLOGICAL: Awake and alert. Motor and sensory grossly within normal limits. Five out of 5 muscle strength in all muscle groups. Normal speech. Data Data Orders Orders Vital Signs (Adult) .ON ADMISSION (07/08/17 20:02) ^ Labor Status (07/08/17 20:02) Urinalysis - C+S If Indicated (07/08/17:) ^ Non Stress Test (07/08/17 20:02) ^ Hydration (07/08/17 20:02) Influenzae A/B Antigen (07/08/17 20:02) Terbutaline Inj (Brethine Inj) (07/08/17 20:15) Terbutaline Inj (Brethine Inj) (07/08/17 20:04) Fentanyl Inj (Fentanyl Inj) (07/08/17 20:15) Labs Urine dip on OB ED is negative MDM Interpretation(s) Patient is 21-year-old black female at 34 weeks presents with contractions some nausea and vomiting sinusitis symptoms and headache. She is kendra every 5 minutes cervix is closed and high home and heart rate tracing is reactive. The patient was here as mentioned earlier and received IM steroids her cervix never changed she did receive 2 units of blood for anemia is symptomatic. On OB ED denies given another liter of IV fluid some fentanyl for pain and subcutaneous terbutaline for contractions. Plan Plan to continue observation tocolyse as needed sent home with prescriptions for Z-Sky fiorecet for headache advised bedrest to follow-up with her OB doctor in his hospital for further care Diagnosis Diagnosis: Primary Impression: Premature uterine contractions causing threatened premature labor in third trimester Additional Impressions: Sinusitis Pharyngitis, chronic Head ache Disposition: 01 DISCHARGE HOME Condition: Stable Scripts Tvokppgtfo-Hsyehnvucvjaw-Oltsaigc (Fioricet) 50-300-40 Mg Cap 1-2 CAP PO Q6H Y for HEADACHE for 7 Days, #20 CAP 0 Refills Prov: Caesar Stapleton II, MD 07/08/17 Azithromycin (Zithromax Z-Sky) 250 Mg Dspk 250 MG PO DIRECTED for Infection, #1 DSPK 0 Refills 500 MG (2 tabs) day 1, then 1 tab days 2-5. Prov: Caesar Stapleton II, MD 07/08/17 Caesar Stapleton II, MD Jul 08, 2017 20:27
[2017-07-08] MEDS ORDERED: ZITHTAB PO (20:28)
[2017-07-08] MEDS ORDERED: BUTA1CAP PO (20:28)
[2017-07-08 21:14] LABS: BACTERIA, URINE RARE /hpf; BLOOD, URINE NEG (NEG); COMMENT (UR) CULT NOT INDICATED; CULTURE IF INDICATED CULT NOT INDICATED; GLUCOSE,URINE NEG (NEG); KETONE, URINE TRACE mg/dL (NEG); MUCUS URINE FEW /lpf (OCC); NITRITE,URINE NEG (NEG); PH, URINE 6.5 (5.0-8.5); SQUAMOUS EPITHELIAL CELL URINE 1 /hpf (0-5); URINE COLOR YELLOW (YELLW/STRAW)
[2017-07-08] MEDS ORDERED: MAGNESIUM SULFATE 40 GM PREMIX 1,000 ML ONE (21:16)
[2017-07-08] MEDS: MAGNESIUM SULFATE 40 GM PREMIX 1,000 ML IV SCH (22:33)
--- NOTE | 2017-07-08 22:40 | HHI.HP ---
History & Physical H&P leslye Unit Number: [id number] Date of : 1995 Patient Status: Admitted Inpatient (obs) Attending Doctor: Caesar Stapleton II, MD HPI HPI Chief Complaint Contractions some nausea and vomiting a day of upper respiratory symptoms sinus symptoms that she's had for several weeks and headache on the patient was here 4 days starting June 28 for threatened labor and anemia which she received 2 units of blood Date Seen: Jul 08, 2017 Time Seen: 20:10 Travel History International Travel<30 Days: No Contact w/Intl Traveler<30Days: No Known Affected Area: No History of Present Illness HPI Patient is [age] black female at 34 weeks who is unregistered to our hospital but is keep coming back here she complains of contractions nausea and vomiting upper respiratory symptoms and headache, she is kendra every 4-5 minutes heart rate tracing is reactive. The patient was here over a week ago as stated 4 days for threatened labor was given IV magnesium sulfate was noted be anemic and dropped her hemoglobin after hydration and was symptomatic and was given 2 units of blood which she improved and was be able to be discharged she did receive steroids IM Weeks Gestation: 34 Para: 1 : 2 History (Limited) History Obstetric History Obstetric History Patient's previous vaginal delivery in the past. This she's had multiple problems she's been going to Dr. Vargas in [facility] but she keeps coming back to [place] over and over. She was seen and admitted here 4 days will over a week ago for threatened labor and was anemic and given the 2 units of blood at that time also had IM steroids Social History Alcohol Use: No Tobacco Use: No Substance Abuse: No Allergies-Medications Allergies-Medications (Allergen,Severity, Reaction): Coded Allergies: Sulfa (Sulfonamide Antibiotics) (Unverified Allergy, Unknown, 03/26/17) Home Meds Active Scripts Azithromycin (Zithromax Z-Sky) 250 Mg Dspk, 250 MG PO DIRECTED for Infection , #1 DSPK 0 Refills 500 MG (2 tabs) day 1, then 1 tab days 2-5. Prov:Caesar Stapleton II, MD 07/08/17 Ferrous Sulfate (Ferrous Sulfate) 325 Mg (65 Mg Iron) Tablet, 325 MG PO BIDPC for Nutritional Supplement, #60 TAB 11 Refills Prov:Obed Wallace MD R2 07/01/17 Ibuprofen (Motrin 600 Mg Tab) 600 Mg Tab, 600 MG PO Q6H for CRAMPS, #30 TAB NO REFILLS Refills Prov:GEOVANY TORRES C.N.M. 07/19/14 [Docusate Sod/Senna] 1 TAB TAB No Conflict Check, 2 TAB PO Q12H Y for CONSTIPATION, #30 TAB NO REFILLS Refills Prov:GEOVANY TORRESM. 07/19/14 Reported Medications Mv & Min W/Fe Fumarat ( 1) 30 Mg-975 Mcg-200 Mg Cap, 1 CAP PO, CAP 07/17/14 ROS Review of Systems General / Constitutional: No: Fever, Weight Gain, Chills, Other Eyes: No: Diploplia, Blurred Vision, Visual changes, Pain, Photophobia HENT: Headaches, No: Vertigo, Lightheadedness Cardiovascular: No: Irregular Rhythm, Chest Pain or Discomfort, Palpitations, Tachycardia, Syncope, Varicosities, Edema, Cyanosis Respiratory: No: Cough, Short of Breath, Other Gastrointestinal: Nausea, Vomiting, No: Diarrhea Genitourinary: No: Decreased Urinary Output, Oliguria Musculoskeletal: No: Limited ROM, Weakness, Cramping, Edema, Pain Skin: No Rash, No Itching, No Dryness, No Lumps, No Change in Pigmentation, No Change in Nails, No Alopecia, No Lesions Neurologic: No: Weakness, Dizziness, Syncope, Focal Abnormalities, Coordination Problem, Headache, Slurred Speech, Seizures Psychiatric: No: Depression, Suicidal Ideations, Homicidal Ideation Endocrine: No: Heat Intolerance, Cold Intolerance, Polydipsia, Polyuria, Other Physical Exam Physical Exam Narrative GENERAL: Well-nourished, well-developed patient. SKIN: Warm and dry. HEAD: Normocephalic and atraumatic. EYES: No scleral icterus. No injection or drainage. ENT: No nasal drainage noted. Mucous membranes pink. Airway patent. NECK: Supple, trachea midline. No JVD. CARDIOVASCULAR: Regular rate and rhythm without murmurs, gallops, or rubs. RESPIRATORY: Breath sounds equal bilaterally. No accessory muscle use. BREASTS: Bilateral exam showed no masses , no retractions, no nipple discharge. ABDOMEN/GI: Abdomen soft, non-tender, bowel sounds present, no rebound, no guarding Gravid to [-34] weeks size Fundal Height: [34-] GENITOURINARY: External Genitalia: intact and normal in appearance BUS glands: [-] Cervix: [-post] Dilatation: [-0] Effacement: [0-] Station: [-3] Membranes: [intact ] Uterine Contractions: [-q 5 min] FHT's: Category: [-1] Baseline: [133-] Reactive: [yes-] Variability: [mod-] Decels: [-0] EXTREMITIES: No cyanosis or edema. BACK: Nontender without obvious deformity. No CVA tenderness. NEUROLOGICAL: Awake and alert. Motor and sensory grossly within normal limits. Five out of 5 muscle strength in all muscle groups. Normal speech. Data Data Data Orders Orders Vital Signs (Adult) .ON ADMISSION (07/08/17 20:02) ^ Labor Status (07/08/17 20:02) Urinalysis - C+S If Indicated (07/08/17 20:02) ^ Non Stress Test (07/08/17 20:02) ^ Hydration (07/08/17 20:02) Influenzae A/B Antigen (07/08/17 20:02) Terbutaline Inj (Brethine Inj) (07/08/17 20:15) Terbutaline Inj (Brethine Inj) (07/08/17 20:04) Fentanyl Inj (Fentanyl Inj) (07/08/17 20:15) Labs Urine dip on OB ED is negative MDM MDM Interpretation(s) Patient is 21-year-old black female at 34 weeks presents with contractions some nausea and vomiting sinusitis symptoms and headache. She is kendra every 5 minutes cervix is closed and high home and heart rate tracing is reactive. The patient was here as mentioned earlier and received IM steroids her cervix never changed she did receive 2 units of blood for anemia is symptomatic. On OB ED denies given another liter of IV fluid some fentanyl for pain and subcutaneous terbutaline for contractions. Plan Plan to continue observation tocolyse as needed sent home with prescriptions for Z-Sky fiorecet for headache advised bedrest to follow-up with her OB doctor in his hospital for further care Diagnosis Diagnosis: Primary Impression: Premature uterine contractions causing threatened premature labor in third trimester Additional Impressions: Sinusitis Pharyngitis, chronic Head ache Disposition: Admit for MagSo4 tocolysis Condition: Stable Scripts Altrklcjae-Brzhnrifeqlac-Kmydqzlb (Fioricet) 50-300-40 Mg Cap 1-2 CAP PO Q6H Y for HEADACHE for 7 Days, #20 CAP 0 Refills Prov: Caesar Stapleton II, MD 07/08/17 Azithromycin (Zithromax Z-Syk) 250 Mg Dspk 250 MG PO DIRECTED for Infection, #1 DSPK 0 Refills 500 MG (2 tabs) day 1, then 1 tab days 2-5. Prov: Caesar Stapleton II, MD 07/08/17 Caesar Stapleton II, MD Jul 08, 2017 20:27 Caesar Stapleton II, MD Jul 08, 2017 22:40
[2017-07-08] MEDS ORDERED: SODIUM CHLORIDE 0.9% FLUSH 10 ML FLUSH IV FLUSH PRN (22:45)
[2017-07-08] MEDS ORDERED: MAGNESIUM SULFATE 4 GM PREMIX 100 ML IV ONE (22:45)
[2017-07-08] MEDS ORDERED: CALCIUM GLUCONATE 10% 1 GM/10 ML VIAL IV PUSH PRN (22:45)
[2017-07-08] MEDS ORDERED: ONDANSETRON HCL 4 MG/2 ML VIAL IV PUSH PRN (22:45)
[2017-07-08] MEDS ORDERED: DOCUSATE SODIUM 100 MG CAP PO PRN (22:45)
[2017-07-08] MEDS ORDERED: ACETAMINOPHEN 325 MG TAB PO PRN (22:45)
[2017-07-08] MEDS ORDERED: PRENTAB7 (22:53)
[2017-07-08] MEDS ORDERED: FERR325T18 PO (22:53)
[2017-07-09] VITALS (96 sets, daily range): BP systolic 87–117; BP diastolic 49–65; PULSE 83–134; RESP 16–18; TEMP 97.4–98.5
[2017-07-09] MEDS: AMPICILLIN INJ 2,000 MG in SODIUM CHLORIDE 0.9% INJ 100 ML IV SCH ×4 (00:24→18:14)
[2017-07-09] MEDS: LACTATED RINGER'S 1000 ML INJ 1,000 ML IV SCH ×3 (00:26→22:33)
[2017-07-09 05:58] LABS: AUTOMATED NEUTROPHIL # 10.3 TH/MM3 (1.8-7.7); BASOPHIL % 0.2 % (0.0-2.0); EOSINOPHIL % 0.2 % (0.0-4.0); HEMO FLAGS DIFF FINAL; LYMPHOCYTE # 1.6 TH/MM3 (1.0-4.8); NEUT % 77.6 % (16.0-70.0); PLATELET COUNT 224 TH/MM3 (150-450); RED BLOOD COUNT 3.73 MIL/MM3 (4.00-5.30); WHITE BLOOD COUNT 13.3 TH/MM3 (4.0-11.0)
[2017-07-09] MEDS ORDERED: ALUMINUM/MAGNESIUM/SIMETH 30 ML CUP PO PRN (06:15)
[2017-07-09] MEDS: SODIUM CHLORIDE 0.9% FLUSH 10 ML FLUSH IV FLUSH SCH ×2 (09:00→21:00)
[2017-07-09 09:19] LABS: HEMATOCRIT 27.3 % (35.0-46.0); MEAN CELL VOLUME 73.9 FL (80.0-100.0); MEAN CORPUSCULAR HEMOGLOBIN 24.3 PG (27.0-34.0); MEAN CORPUSCULAR HGB CONC 32.9 % (32.0-36.0); PLATELET COUNT 224 TH/MM3 (150-450); RED BLOOD COUNT 3.69 MIL/MM3 (4.00-5.30); RED CELL DISTRIBUTION WIDTH 18.7 % (11.6-17.2); REVIEW FLAG FINAL; WHITE BLOOD COUNT 12.3 TH/MM3 (4.0-11.0)
[2017-07-09 09:51] LABS: BICARBONATE 23.2 MEQ/L (21.0-32.0); POTASSIUM 4.1 MEQ/L (3.5-5.1)
[2017-07-09 09:58] LABS: CALCIUM-PROTEIN CORRECTED 7.3 MG/DL (8.5-10.1)
--- NOTE | 2017-07-09 11:38 | HHI.FPPN ---
Subjective Remarks Ms Riley is a 21YO at 34/2 weeks who was having regular contractions overnight, afebrile but tachycardic and hypotensive on Mag sulfate with nausea and emesis x1 overnight. Her headache resolved spontaneously. We are trending H/ H because of blood loss anemia for which she received 2u PRBCs approx 4 days ago for Hgb 6.7. Pt has heartburn and a sore throat this morning. Denies CP, SOB and DVT leg pain. Objective Vitals Vital Signs Date Time Temp Pulse Resp B/P (MAP) Pulse Ox O2 Delivery O2 Flow Rate FiO2 07/09/17 11:02 16 07/09/17 08:04 16 94/50 (65) 07/09/17 08:00 100 07/09/17 08:00 96 07/09/17 07:37 97.7 07/09/17 07:37 18 07/09/17 07:35 100 07/09/17 07:30 115 07/09/17 07:25 111 07/09/17 07:20 111 07/09/17 07:15 114 07/09/17 07:10 111 07/09/17 07:05 95 07/09/17 07:00 103 07/09/17 07:00 115 98/55 (69) 07/09/17 06:55 107 07/09/17 06:29 18 07/09/17 06:00 105/54 (71) 07/09/17 05:55 118 07/09/17 05:00 18 07/09/17 05:00 91/64 (73) 07/09/17 04:55 104 07/09/17 04:00 111/53 (72) 07/09/17 03:55 125 07/09/17 03:00 117/51 (73) 07/09/17 03:00 98.5 07/09/17 03:00 18 07/09/17 02:55 114 07/09/17 02:14 100/51 (67) 07/09/17 01:55 121 07/09/17 01:00 18 07/09/17 00:55 124 07/09/17 00:30 134 07/09/17 00:29 90/52 (65) 07/08/17 23:55 116 07/08/17 23:10 118 07/08/17 23:02 98.4 16 07/08/17 23:01 132 94/43 (60) 07/08/17 22:55 112 07/08/17 22:40 128 07/08/17 22:25 140 07/08/17 22:10 120 07/08/17 22:05 123 07/08/17 22:00 16 102/54 (70) 07/08/17 21:55 143 07/08/17 21:55 94/59 (71) 07/08/17 21:51 130 121/67 (85) 07/08/17 21:45 114/71 (85) 07/08/17 21:45 133 16 07/08/17 21:40 18 07/08/17 21:40 135 97/55 (69) 07/08/17 21:35 121 98/47 (64) 07/08/17 20:56 120 07/08/17 20:55 18 Result Diagram: 07/09/17 0850 07/09/17 0850 Objective Remarks GENERAL: Well-nourished, well-developed patient who appears 34 weeks , in NAD. SKIN: Warm and dry. No rashes or lesions. HEAD: Normocephalic. Atraumatic. MMM. EYES: No scleral icterus. No injection or drainage. EOMI. NECK: Supple, trachea midline. No JVD or lymphadenopathy. CARDIOVASCULAR: Tachycardic, regular rhythm without murmur, gallop, or rub. RESPIRATORY: Breath sounds equal bilaterally. No accessory muscle use. No increased WOB. GASTROINTESTINAL: Abdomen soft, non-tender, normally distended from . EXTREMITIES: No cyanosis, or edema. NEUROLOGICAL: Awake, alert, and oriented x 3. Non-focal. Medications and IVs Current Medications Medications (Trade) Dose Ordered Sig/Leigh Ann Route Start Time Stop Time Status Last Admin Lactated Ringer's 1,000 ml @ 125 mls/hr Q8H IV 07/08/17 22:33 07/09/17 00:26 (NS Flush) 2 ml UNSCH PRN IV FLUSH 07/08/17 22:45 (NS Flush) 2 ml BID IV FLUSH 07/09/17 09:00 Magnesium Sulfate 1,000 ml @ 50 mls/hr Q20H IV 07/08/17 22:33 (Calcium Gluconate Inj) 1 gm ONCE PRN IV PUSH 07/08/17 22:45 07/09/17 22:44 (Tylenol) 650 mg Q4H PRN PO 07/08/17 22:45 (Zofran Inj) 4 mg Q6H PRN IV PUSH 07/08/17 22:45 07/09/17 10:57 (Colace) 100 mg BID PRN PO 07/08/17 22:45 (fentaNYL INJ) 25 mcg Q3HR PRN IV PUSH 07/08/17 22:45 Ampicillin Sodium 2000 mg/Sodium Chloride 100 ml @ 400 mls/hr Q6HR IV 07/09/17 00:00 07/09/17 06:03 (Tums Chew) 500 mg Q12HR PRN CHEW 07/09/17 12:00 Urinary Catheter: No Vascular Central Line Catheter: No A/P Assessment and Plan 21 YO female at 34/2 weeks with regular contractions for over a week now in spite of Magnesium and terbutaline; Pt has nausea and vomiting and recent URI who is anemic but stable w/Hgb 9.0 and stable s/p transfusion of 2u PRBCs from prior hospitalization at [place] approx 4 days ago. No leakage of fluid. Consider complications from URI vs active infection. PLAN: Manage expectantly -Pt is s/p Terbutaline yesterday -Mag 6.7 this morning -Discontinue Mag sulfate -UA negative -Influenza A/B negative -Resp panel pending -Blood cx pending -Tums for heartburn -Continue to follow H/H -Incentive spirometry -EKG Pt seen and discussed with Abhi Grimes and Juan A Chamberlain MD R1 Jul 09, 2017 11:38
[2017-07-09] MEDS: CALCIUM CARBONATE 500 MG CHEWABLE TAB CHEW PRN ×2 (11:45→21:58)
[2017-07-09] MEDS: MAGNESIUM SULFATE 40 GM PREMIX 1,000 ML IV SCH (12:10)
--- NOTE | 2017-07-09 15:15 | EKG ---
Date Performed: 07/09/2017 Time Performed: 11:36:54 PTAGE: 21 years EKG: SINUS TACHYCARDIA ABNORMAL RHYTHM ECG NO PREVIOUS TRACING DOCTOR: Tri Alonso Interpretating Date/Time 07/09/2017 15:13:06
[2017-07-10] VITALS (115 sets, daily range): BP systolic 88–116; BP diastolic 43–67; PULSE 66–126; RESP 1–18; TEMP 97.7–98.4
[2017-07-10] MEDS: AMPICILLIN INJ 2,000 MG in SODIUM CHLORIDE 0.9% INJ 100 ML IV SCH ×3 (00:50→12:17)
[2017-07-10] MEDS ORDERED: PANTOPRAZOLE SOD 40 MG DELAYED RELEASE TAB PO PRN (01:00)
[2017-07-10] MEDS: LACTATED RINGER'S 1000 ML INJ 1,000 ML IV SCH ×2 (06:33→06:41)
[2017-07-10] MEDS: SODIUM CHLORIDE 0.9% FLUSH 10 ML FLUSH IV FLUSH SCH (07:45)
--- NOTE | 2017-07-10 09:37 | PD.OB.ANTE ---
Subjective Interval History Ms Riley is a 21YO at 34/3 weeks with anemia and contractions who slept well overnight, but with 1x emesis of dinner last night. Still with irregular contractions this morning, denies CP, SOB, N/V/D, and DVT pain. Heartburn is absent this morning. Co concerns. Antepartum ROS: Reports: movement normal, Contractions, Denies: Loss of fluid, Vaginal bleeding (Juan A Hopper MD R1) Objective Vital Signs Vital Signs Date Time Temp Pulse Resp B/P (MAP) Pulse Ox O2 Delivery O2 Flow Rate FiO2 07/10/17 08:15 82 07/10/17 08:10 83 07/10/17 08:05 94 07/10/17 08:00 76 07/10/17 08:00 80 102/50 (67) 07/10/17 07:36 97.8 18 07/10/17 07:35 77 07/10/17 07:30 84 07/10/17 07:25 78 07/10/17 07:20 66 07/10/17 07:15 96 07/10/17 07:10 85 07/10/17 07:05 84 07/10/17 07:00 77 106/55 (72) 07/10/17 07:00 79 07/10/17 06:38 98.4 18 07/10/17 06:38 1 07/10/17 06:00 16 94/44 (61) 07/10/17 05:55 85 07/10/17 05:00 108/64 (79) 07/10/17 04:55 79 07/10/17 04:00 16 114/67 (83) 07/10/17 03:55 76 07/10/17 03:00 113/50 (71) 07/10/17 02:55 82 07/10/17 02:00 16 102/48 (66) 07/10/17 01:55 88 07/10/17 01:00 99/43 (61) 07/10/17 00:55 87 07/10/17 00:45 84 07/10/17 00:01 91/44 (60) 07/09/17 23:55 90 07/09/17 23:31 18 07/09/17 23:30 89 07/09/17 23:00 102/52 (69) 07/09/17 22:55 93 07/09/17 22:00 111/63 (79) 07/09/17 21:55 101 07/09/17 21:13 18 07/09/17 21:08 100/52 (68) 07/09/17 20:55 115 07/09/17 20:31 18 07/09/17 20:00 18 07/09/17 19:55 107 07/09/17 19:00 87/52 (64) 07/09/17 18:55 86 07/09/17 18:50 100 07/09/17 18:45 89 07/09/17 18:30 98 07/09/17 18:25 103 07/09/17 18:18 16 07/09/17 18:15 89 07/09/17 18:05 88 07/09/17 18:00 111/65 (80) 07/09/17 17:55 93 07/09/17 17:25 86 07/09/17 17:14 97.8 16 07/09/17 17:10 94 07/09/17 17:05 85 07/09/17 17:00 88 98/49 (65) 07/09/17 16:55 83 07/09/17 16:15 83 07/09/17 16:01 16 07/09/17 16:00 92 106/63 (77) 07/09/17 15:55 85 07/09/17 15:25 89 07/09/17 15:15 94 07/09/17 15:13 16 07/09/17 15:10 97 07/09/17 15:00 113/65 (81) 07/09/17 14:55 98 07/09/17 14:36 18 07/09/17 14:35 104 07/09/17 14:05 100 07/09/17 14:00 106/60 (75) 07/09/17 13:55 97 07/09/17 13:50 107 07/09/17 13:45 109 07/09/17 13:40 105 07/09/17 13:38 18 07/09/17 13:35 107 07/09/17 13:30 103 07/09/17 13:25 111 07/09/17 13:20 93 07/09/17 13:10 96 07/09/17 13:05 104 07/09/17 13:00 90 110/62 (78) 07/09/17 13:00 92 07/09/17 12:55 99 07/09/17 12:13 112/55 (74) 07/09/17 12:12 18 07/09/17 11:55 108 07/09/17 11:34 97.4 07/09/17 11:07 113/62 (79) 07/09/17 11:02 16 07/09/17 10:55 113 07/09/17 10:06 103/54 (70) 07/09/17 09:55 110 Lab & Micro Results Date/Time Source Procedure Growth Status 07/09/17 12:10 Blood Peripheral Aerobic Blood Culture Pending Received 07/09/17 12:10 Blood Peripheral Anaerobic Blood Culture Pending Received 07/08/17 19:30 Nasal Washing Influenza Types A,B Antigen (Z[facility]) - Final NEGATIVE FOR FLU A AND B ANTIGEN.... Complete Physical Exam GENERAL: Well-nourished, well-developed patient in NAD. CARDIOVASCULAR: Regular rate and rhythm without murmurs, gallops, or rubs. RESPIRATORY: Breath sounds equal bilaterally. No accessory muscle use. ABDOMEN/GI: Abdomen soft, non-tender. Fundus: gravid to 34 weeks GENITOURINARY: External Genitalia: deferred Membranes intact FHT's: Category: 1 Baseline: 130 Reactive: yes Variability: moderate Decels: no EXTREMITIES: No cyanosis or edema, non-tender, without signs of DVT. (Juan A Hopper MD R1) Assessment and Plan Assessment and Plan 21 YO female at 34/4 weeks with anemia and persistent contractions and nausea/vomiting s/p Magnesium and terbutaline. Pt with reduced nausea and vomiting and recent URI who is anemic but stable w/Hgb 9.0 and stable s/p transfusion of 2u PRBCs from prior hospitalization at [place] approx 5 days ago. No leakage of fluid. PLAN: Manage expectantly -Pt is s/p Terbutaline 07/08 and Mag 07/08-07/09 -Discontinue Mag -UA negative -Influenza A/B negative -Resp panel pending -Blood cx pending -Tums for heartburn -Incentive spirometry -EKG w/sinus tachycardia 07/09; HR wnl today -Start Procardia 10mg TID in anticipation of outpt tocolytic -Discharge today Pt also seen by Dr Grimes (Juan A Hopper MD R1) Collaborating MD Comments Agree with care plan (Margaret Grimes MD) Juan A Hopper MD R1 Jul 10, 2017 09:37 Margaret Grimes MD Jul 15, 2017 08:48
[2017-07-10] MEDS ORDERED: SODIUM CHLOR 0.9% 1000 ML INJ 1,000 ML IV PRN (09:45)
[2017-07-10] MEDS ORDERED: NIFEdipine 10 MG CAP ONE (11:48)
[2017-07-10] MEDS ORDERED: NIFEdipine 10 MG CAP PO SCH (14:00)
[2017-07-10] MEDS ORDERED: Calcium Carbonate Chew CHEW (14:05)
[2017-07-10] MEDS ORDERED: DOCU1CAP39 PO (14:05)
[2017-07-10] MEDS ORDERED: ZOFR4TAB PO (14:05)
[2017-07-10] MEDS ORDERED: FERR325T18 PO (14:05)
[2017-07-10] MEDS ORDERED: NIFE10 PO (14:05)
--- NOTE | 2017-07-10 14:06 | HHI.DCPOC ---
Discharge Care Plan Diagnosis: (1) Sinusitis (2) Premature uterine contractions causing threatened prematurelabor in third trimester Report Symptoms to Your Doctor -Temperature above 100.5 degrees -Redness, of incision or excessive or foul smelling drainage -Unusual pain or calf pain -Increased vaginal bleeding -Painful or difficulty urinating -Feelings of extreme sadness or anxiety after 2 weeks Goals to Promote Your Health * To prevent worsening of your condition and complications * To maintain your health at the optimal level Directions to Meet Your Goals Take your medications as prescribed Follow your dietary instruction Follow activity as directed Ensure plenty of rest for recovery Drink fluids for hydration Keep your appointments as scheduled Take your immunizations and boosters as scheduled If your symptoms worsen call your PCP, if no PCP go to Urgent Care Center or Emergency Room Smoking is Dangerous to Your Health. Avoid second hand smoke Call the 24-hour crisis hotline for domestic abuse at Yojana Ewing MD R2 Jul 10, 2017 14:06
== END 2017-07-10 18:31 | disposition home or self-care (01) ==
LOC: HOBED 18:34 → H2EB 21:13
PROVIDERS: ADMIT Obstetrics & Gynecology Maternal & Fetal Medicine; ATTEND Obstetrics & Gynecology Maternal & Fetal Medicine
DX: O99.513 Diseases of the respiratory system complicating pregnancy, third trimester (principal); J32.9 Chronic sinusitis, unspecified; O47.03 False labor before 37 completed weeks of gestation, third trimester; O99.013 Anemia complicating pregnancy, third trimester; D50.0 Iron deficiency anemia secondary to blood loss (chronic); R94.31 Abnormal electrocardiogram [ECG] [EKG]; Z3A.34 34 weeks gestation of pregnancy
CPT/HCPCS: 36415; 59025; 80053; 80307; 81001; 83735; 85025; 85027; 87040; 87804; 93005; 94150; 96365; 96366; 96372; 96376; 99285; G0378; J0290; J2405; J3010; J3105; J3475; J7120; 51702